=== PATIENT | male | born 1935 | race Caucasian/White ===

== ENCOUNTER 2020-07-22 11:39 | Inpatient (IN) | payer MEDICARE ==
[~2020-07-22] VITALS: Ht 160 cm; Wt 60.3 kg
[2020-07-22 12:23] LABS: ABG BASE EXCESS -1.7 mmol/L (-2.0-3.0); ABG HCO3 21.9 mmol/L (21.0-28.0); ABG OXYGEN SATURATION 94.6 % (95.0-99.0); ABG PCO2 34 mmHg (35-48)
[2020-07-22 12:32] LABS: BASOPHILS % (AUTO) 0.1 % (0.0-5.0); HEMATOCRIT 42.1 % (42-54); LYMPHOCYTES % (AUTO) 2.6 % (21.0-51.0); MEAN CORPUSCULAR HEMOGLOBIN 32.2 pg (27.0-33.0); MEAN CORPUSCULAR HGB CONC 33.7 g/dL (32.0-36.0); MEAN CORPUSCULAR VOLUME 95.5 fL (79-99); MONOCYTES % (AUTO) 4.6 % (3.0-13.0); NEUTROPHILS % (AUTO) 90.5 % (40.0-77.0); PLATELET COUNT (AUTO) 151 K/uL (130-400); RED BLOOD CELL COUNT(AUTO) 4.41 MIL/uL (4.50-6.20); WHITE BLOOD COUNT (AUTO) 13.2 K/uL (4.8-10.8)
[2020-07-22 12:45] LABS: CREATININE 1.2 mg/dL (0.5-1.5); INR 1.05 (0.85-1.15); POTASSIUM 4.1 mmol/L (3.5-5.1); PROTHROMBIN TIME 11.2 SEC (9.6-11.6)
[2020-07-22 12:46] LABS: PARTIAL THROMBOPLASTIN TIME 26.5 SEC (26.3-35.5)
[2020-07-22] MEDS ORDERED: SODIUM CHLORIDE 0.9% 1000ML 2,000 ML IV ONE (12:47)
[2020-07-22 12:49] LABS: ALBUMIN 3.4 g/dL (3.5-5.0); BILIRUBIN,TOTAL 0.8 mg/dL (0.2-1.0); TOTAL PROTEIN, SERUM 6.9 g/dL (6.0-8.3)
[2020-07-22] MEDS ORDERED: ASPIRIN 325 MG TABLET ONE (13:37)
[2020-07-22] MEDS ORDERED: DEXAMETHASONE SOD PHOSPHATE 10MG/ML 1ML VIAL ONE ×2 (13:37→18:57)
[2020-07-22] MEDS ORDERED: AZITHROMYCIN 250 MG TABLET PO ONE (13:38)
[2020-07-22] MEDS ORDERED: CEFTRIAXONE SODIUM 1 GM ONE (13:38)
[2020-07-22 14:21] LABS: CRP QUANTITATIVE 255.2 mg/L (0.00-9.0)
[2020-07-22] MEDS ORDERED: IOHEXOL-350 50ML VIAL IV ONE (14:22)
[2020-07-22] MEDS ORDERED: RENAL DOSE IV SCH (17:30)
[2020-07-22] MEDS ORDERED: ATORVASTATIN CALCIUM 20 MG TABLET ONE (18:57)
[2020-07-22] MEDS ORDERED: DEXAMETHASONE SOD PHOSPHATE 4 MG/ML 1ML VIAL IVP SCH (19:15)
[2020-07-22 20:11] LABS: APPEARANCE,URINE Clear (CLEAR); BILIRUBIN,URINE Negative (NEGATIVE); COLOR,URINE Yellow (YELLOW); GLUCOSE, URINE (UA) Negative (NEGATIVE); KETONES,URINE Trace mg/dL (NEGATIVE); LEUKOCYTE ESTERASE ,URINE Negative (NEGATIVE); NITRATE,URINE Negative (NEGATIVE); OCCULT BLOOD,URINE Trace (NEGATIVE); PROTEIN,URINE Negative (NEGATIVE); UROBILINOGEN,URINE 0.2 mg/dL (0.2-1.0)
[2020-07-22] MEDS ORDERED: LORAZEPAM 2 MG/ML 1 ML VIAL ONE (20:32)
[2020-07-22 20:50] LABS: BACTERIA,URINE None Seen /HPF (None Seen); RBC,URINE None Seen /HPF (0-1); SQUAMOUS EPITHELIAL CELL,UR None Seen /HPF (0-2); WBC,URINE 0-1 /HPF (0-1)
[2020-07-22] MEDS: ENOXAPARIN SODIUM 30 MG/0.3 ML SQ SCH (21:00)
[2020-07-22] MEDS ORDERED: HALOPERIDOL LACTATE 5 MG/ML VIAL ONE (21:40)
[2020-07-22] MEDS ORDERED: SODIUM CHLORIDE 0.9% 250 ML IV ONE (23:25)
[2020-07-23 05:45] LABS: BASOPHILS % (AUTO) 0.1 % (0.0-5.0); HEMATOCRIT 41.6 % (42-54); LYMPHOCYTES % (AUTO) 2.2 % (21.0-51.0); MEAN CORPUSCULAR HEMOGLOBIN 32.5 pg (27.0-33.0); MEAN CORPUSCULAR HGB CONC 33.9 g/dL (32.0-36.0); MEAN CORPUSCULAR VOLUME 95.9 fL (79-99); NEUTROPHILS % (AUTO) 95.3 % (40.0-77.0); PLATELET COUNT (AUTO) 161 K/uL (130-400); RED BLOOD CELL COUNT(AUTO) 4.34 MIL/uL (4.50-6.20); WHITE BLOOD COUNT (AUTO) 13.4 K/uL (4.8-10.8)
[2020-07-23 06:16] LABS: POTASSIUM 4.3 mmol/L (3.5-5.1)
[2020-07-23 06:28] LABS: CRP QUANTITATIVE 280.4 mg/L (0.00-9.0)
[2020-07-23 08:43] VITALS: BP 125/42
--- NOTE | 2020-07-23 08:55 | NUR ---
Pt admission database Pt has advanced Alzheimer's Disease. Pt unable to provide any health data or history. Hospital appointed sitter at bedside. Addendum: 07/23/20 at 0900 by АННА LINTON RN RN Amended: Links added.
[2020-07-23] MEDS ORDERED: ENOXAPARIN SODIUM 40 MG/0.4 ML SYRINGE SQ SCH (09:00)
[2020-07-23] MEDS: ENOXAPARIN SODIUM 30 MG/0.3 ML SQ SCH ×2 (09:00→21:00)
[2020-07-23] MEDS: ATORVASTATIN CALCIUM 20 MG TABLET PO SCH (10:10)
[2020-07-23] MEDS: ASPIRIN 81MG TAB.CHEW PO SCH (10:10)
[2020-07-23] MEDS ORDERED: ENOXAPARIN SODIUM 30 MG/0.3 ML SQ ONE (10:18)
[2020-07-23] MEDS ORDERED: ATORVASTATIN CALCIUM 20 MG TABLET ONE (10:18)
[2020-07-23] MEDS ORDERED: ASPIRIN 81MG TAB.CHEW ONE (10:18)
--- NOTE | 2020-07-23 14:00 | NUR ---
cm note spoke to Dr romero and states wishes for us to work on snf level of care for pt. pt will likely require oxygen at dc. call made to brigido flores, [phone], who states she has spoken to pt's spouse lisa Escudero, and that they agree that pt requires snf level of care. informed of covid facilities available in the area. and she states they wish [facility] as 1st choice. choice letter obtained and referral faxed to [facility]. spoke to obdulia zapata to confirm receipt. will evaluate and let cm know of outcome.
[2020-07-23] MEDS: CEFTRIAXONE SODIUM 1 GM IVP SCH (14:02)
[2020-07-23] MEDS ORDERED: CEFTRIAXONE SODIUM 1 GM ONE (15:37)
--- NOTE | 2020-07-23 17:01 | NUR ---
cm note call made to lornasaida lakeshia flores [phone], and states pt resides at home. is ambulatory, no dme. no home services. spouse drives. and takes to md. as needed. niece and spouse are agreeable to referral to snf level of care. and plan for [facility], is aware that [facility] has evaluated and wishes to re evaluate pt in 2 days. and then determine acceptance. updated dr romero on above, verbalizes understanding. and updated primary nurse lakeshia flores. Addendum: 07/23/20 at 1717 by MAX PHILLIPS CM Amended: Links added.
[2020-07-24] MEDS ORDERED: ASPIRIN 81MG TAB.CHEW ONE (07:44)
[2020-07-24] MEDS ORDERED: ATORVASTATIN CALCIUM 20 MG TABLET ONE (07:44)
[2020-07-24] MEDS ORDERED: ENOXAPARIN SODIUM 30 MG/0.3 ML SQ ONE (07:44)
[2020-07-24] MEDS: ENOXAPARIN SODIUM 30 MG/0.3 ML SQ SCH ×2 (09:00→20:51)
[2020-07-24] MEDS: ASPIRIN 81MG TAB.CHEW PO SCH (10:10)
[2020-07-24] MEDS: ATORVASTATIN CALCIUM 20 MG TABLET PO SCH (10:10)
[2020-07-24 10:41] VITALS: BP 127/78
[2020-07-24 11:00] VITALS: BP 118/43
[2020-07-24] MEDS: CEFTRIAXONE SODIUM 1 GM IVP SCH (14:04)
--- NOTE | 2020-07-24 15:50 | NUR ---
report obtained report from nurse xin...(taking over )...pt stable alert but asleep at this time...introduced myself to patient...patient on 5 liters nasal canula...
[2020-07-24 16:28] VITALS: BP 116/55
--- NOTE | 2020-07-24 17:35 | NUR ---
diet messaged dr. romero to see if he wants to order patient a diet...he has no diet ordered at this time...waiting for call back.
--- NOTE | 2020-07-24 18:31 | NUR ---
dinner patient ate half of his dinner...pt went back to sleep...
[2020-07-25] VITALS: BP 122/56
--- NOTE | 2020-07-25 02:43 | NUR ---
hourly shift nursing note: Neuro: At the start of shift, patient climbing OOB , put back in bed, patient is confuse, Read a letter his wrote for him, unable to oriented, sitter place at the bedside. Cardio: BP stable, HR 90-98, no edema noted, Tmax 98.9 ax Resp: Continues on NC %L, o2 sats 93-95, LS dimished bilat, SOB with activity GI/: Mech soft diet, Abd soft, no BM, incont of urine with diapers. Skin: Intact, bruising on upper arms.
[2020-07-25] MEDS: ASPIRIN 81MG TAB.CHEW PO SCH (10:02)
[2020-07-25] MEDS ORDERED: ERGOCALCIFEROL (VITAMIN D2) 50,000 UNIT CAPSULE PO SCH (10:45)
[2020-07-25 10:51] LABS: BASOPHILS % (AUTO) 0.2 % (0.0-5.0); EOSINOPHILS % (AUTO) 1.9 % (0.0-8.0); HEMATOCRIT 40.3 % (42-54); MEAN CORPUSCULAR HEMOGLOBIN 31.6 pg (27.0-33.0); MEAN CORPUSCULAR VOLUME 95.7 fL (79-99); MONOCYTES % (AUTO) 5.1 % (3.0-13.0); NEUTROPHILS % (AUTO) 89.5 % (40.0-77.0); PLATELET COUNT (AUTO) 165 K/uL (130-400); RED BLOOD CELL COUNT(AUTO) 4.21 MIL/uL (4.50-6.20); RED CELL DISTRIBUTION WIDTH 13.2 % (11.0-15.5); WHITE BLOOD COUNT (AUTO) 6.4 K/uL (4.8-10.8)
[2020-07-25] MEDS: ATORVASTATIN CALCIUM 20 MG TABLET PO SCH (10:56)
[2020-07-25] MEDS: ENOXAPARIN SODIUM 30 MG/0.3 ML SQ SCH ×2 (10:57→21:34)
[2020-07-25] MEDS ORDERED: RENAL DOSE IV SCH (11:00)
[2020-07-25 11:10] LABS: ALBUMIN 2.5 g/dL (3.5-5.0); CREATININE 0.9 mg/dL (0.5-1.5); POTASSIUM 3.1 mmol/L (3.5-5.1)
[2020-07-25 11:15] LABS: CRP QUANTITATIVE 258.6 mg/L (0.00-9.0)
[2020-07-25] MEDS: DEXAMETHASONE SOD PHOSPHATE 4 MG/ML 1ML VIAL IVP SCH (12:14)
--- NOTE | 2020-07-25 12:15 | NUR ---
DYSPHAGIA EVAL COMPLETED. +S/S OF ASPIRATION ACROSS ALL TEXTURES. RECOMMEND NPO, SHORT TERM ALTERNATE MEANS OF NUTRITION/HYDRATION. RENTAL SALES AGENT COORDINATED WITH NURSE BLANK. Addendum: 07/25/20 at 1524 by MELISSA TINAJERO, [facility] Amended: Links added.
[2020-07-25] MEDS: CEFTRIAXONE SODIUM 1 GM IVP SCH (14:28)
[2020-07-25] MEDS: ZOSYN 3.375GM+NS 50ML 50 ML IV SCH ×2 (14:51→21:33)
--- NOTE | 2020-07-25 15:16 | NUR ---
Md FREDDY ordred stat . pt is incontinent , attempted multiple times . UA was send to lab at 1445 Addendum: 07/25/20 at 1520 by YANET ARCE RN RN pt refuesd to be cath, and was combative
[2020-07-25 15:17] LABS: APPEARANCE,URINE Clear (CLEAR); BILIRUBIN,URINE Negative (NEGATIVE); COLOR,URINE Dark Yellow (YELLOW); GLUCOSE, URINE (UA) Negative (NEGATIVE); KETONES,URINE 40 mg/dL (NEGATIVE); LEUKOCYTE ESTERASE ,URINE Negative (NEGATIVE); NITRATE,URINE Negative (NEGATIVE); OCCULT BLOOD,URINE Negative (NEGATIVE); PH,URINE 5.5 (5.0-8.0); PROTEIN,URINE POS 1+ mg/dL (NEGATIVE); UROBILINOGEN,URINE 0.2 mg/dL (0.2-1.0)
[2020-07-25 15:25] LABS: RBC,URINE 0-1 /HPF (0-1); WBC,URINE 0-1 /HPF (0-1)
[2020-07-25 15:26] LABS: BACTERIA,URINE Rare /HPF (None Seen); SQUAMOUS EPITHELIAL CELL,UR Rare /HPF (0-2)
[2020-07-25 16:00] VITALS: BP 111/55
[2020-07-25 16:18] VITALS: BP 111/67
--- NOTE | 2020-07-25 17:39 | NUR ---
MAYUR DECLINED PATIENT AGAIN TODAY- \ STATES TOO EARLY, O2 SATS ONLY 91 ON 5 LNC, NEEDS MORE TIME TO SEE IF GOING TO IMPROVE OR NOT. DR. Etienne ASKED ABOUT KAREL DUENAS, CALL TO [facility] FARRIS FOR K[facility]EL DUENAS, RESONSE WAS THAT UP TO 8 LNC IS OK FOR THEM. OLGA LIDIAR FROM DR. Etienne TO APPROACH FAMILY RE K[facility]EL DUENAS; FAMILY STATES NO, THEY WANT TO GO TO [facility] Addendum: 07/25/20 at 1742 by ARELY PINA RN CM Amended: Links added.
--- NOTE | 2020-07-25 18:05 | NUR ---
FREDDY, SPOKE TO ANA TO Pass message to Dr Carrillo for an order of NG tube or OG tube UPON RECOMMENDATION OF SPEECH PATHOLOGIST
[2020-07-25 20:00] VITALS: BP 131/47
[2020-07-26] VITALS: BP 116/55
[2020-07-26 04:00] VITALS: BP 129/58
[2020-07-26] MEDS: ZOSYN 3.375GM+NS 50ML 50 ML IV SCH ×2 (05:13→22:31)
[2020-07-26] MEDS: ZINC SULFATE 220 CAPSULE PO SCH (09:00)
[2020-07-26] MEDS: ASCORBIC ACID 500 MG TAB PO SCH (09:00)
[2020-07-26] MEDS: ASPIRIN 81MG TAB.CHEW PO SCH (09:00)
[2020-07-26] MEDS: ATORVASTATIN CALCIUM 20 MG TABLET PO SCH (09:00)
[2020-07-26] MEDS: DEXAMETHASONE SOD PHOSPHATE 4 MG/ML 1ML VIAL IVP SCH ×2 (10:13→21:50)
[2020-07-26] MEDS: ENOXAPARIN SODIUM 30 MG/0.3 ML SQ SCH ×2 (10:14→21:51)
[2020-07-26] MEDS ORDERED: POTASSIUM CHLORIDE 20 MEQ ERTAB PO PRN (12:30)
[2020-07-26] MEDS ORDERED: POTASSIUM CHLORIDE 20MEQ/100ML 100 ML IV PRN ×2 (12:30)
[2020-07-26] MEDS ORDERED: [UNRECOGNIZED DRUG - REMARK] MISC SCH (12:30)
--- NOTE | 2020-07-26 14:14 | NUR ---
RD NOTIFICATION - TUBE FEEDING. Pt with S/S aspiration with all textures, per ST. Short term alternate means nutrition recommended. Recommend initiate Vital AF 1.2 @20mls/hr for 24hrs. Goal rate 50mls/hr. Recommend flushes 100mL Q6. Recommendations faxed to [facility], RN notified. GRECIA NOTE: Pt admitted with PNA, Diarrhea, Positive for COVID, AMS. Lovenox, Piperacillin, Lipitor, Aspirin medications in place. Monitored labs: K 3.1, BUN 25, Ca 8.2, CRP 258.60, Alb 2.5. Pt with mild to moderate risk malnutrition related to poor PO x9 days prior to admission per H&P note, S/S mild to moderate fat and muscle loss. RD to continue to monitor. Please notify as additional nutrition concerns arise. Thank you. Addendum: 07/26/20 at [address] Amended: Links added.
[2020-07-26] MEDS ORDERED: PHARMACY COMMUNICATION MISC SCH (14:30)
[2020-07-26 16:00] VITALS: BP 121/64
[2020-07-26] MEDS: CEFTRIAXONE SODIUM 1 GM IVP SCH (18:45)
[2020-07-26 20:00] VITALS: BP 126/50
[2020-07-27] VITALS (19 sets, daily range): BP systolic 105–147; BP diastolic 38–80
[2020-07-27 06:21] LABS: BASOPHILS % (AUTO) 0.3 % (0.0-5.0); EOSINOPHILS % (AUTO) 0.7 % (0.0-8.0); HEMATOCRIT 42.9 % (42-54); MEAN CORPUSCULAR HEMOGLOBIN 31.3 pg (27.0-33.0); MEAN CORPUSCULAR HGB CONC 32.6 g/dL (32.0-36.0); MONOCYTES % (AUTO) 7.5 % (3.0-13.0); PLATELET COUNT (AUTO) 249 K/uL (130-400); RED BLOOD CELL COUNT(AUTO) 4.47 MIL/uL (4.50-6.20); RED CELL DISTRIBUTION WIDTH 12.9 % (11.0-15.5); WHITE BLOOD COUNT (AUTO) 7.2 K/uL (4.8-10.8)
[2020-07-27] MEDS: ZOSYN 3.375GM+NS 50ML 50 ML IV SCH ×3 (06:30→22:48)
[2020-07-27 06:45] LABS: ALBUMIN 2.9 g/dL (3.5-5.0); BILIRUBIN,TOTAL 0.8 mg/dL (0.2-1.0); CREATININE 1.1 mg/dL (0.5-1.5); CRP QUANTITATIVE 95.5 mg/L (0.00-9.0); POTASSIUM 3.4 mmol/L (3.5-5.1)
[2020-07-27] MEDS ORDERED: DEXMEDETOMIDINE HCL 400 MCG in SODIUM CHLORIDE 0.9% 100 ML IV SCH ×2 (08:45→19:00)
[2020-07-27] MEDS ORDERED: DEXMEDETOMIDINE HCL 200 MCG in SODIUM CHLORIDE 0.9% 50 ML IV SCH (08:45)
[2020-07-27] MEDS ORDERED: COMPOUND IV REFRIGERATED 1 EACH IVSOLN MISC PRN (09:00)
[2020-07-27] MEDS ORDERED: REMDESIVIR (EUA) 520 200 MG in SODIUM CHLORIDE 0.9% 250 ML IV ONE (09:00)
[2020-07-27] MEDS ORDERED: FAMOTIDINE/PF 20 MG/2 ML VIAL IV SCH (09:00)
[2020-07-27] MEDS ORDERED: RISPERIDONE 1 MG TABLET PO SCH (09:00)
[2020-07-27] MEDS: ZINC SULFATE 220 CAPSULE PO SCH (09:00)
[2020-07-27] MEDS: ATORVASTATIN CALCIUM 20 MG TABLET PO SCH (09:00)
[2020-07-27] MEDS: ASPIRIN 81MG TAB.CHEW PO SCH (09:00)
[2020-07-27] MEDS: ASCORBIC ACID 500 MG TAB PO SCH (09:00)
--- NOTE | 2020-07-27 09:00 | NUR ---
restraint pt. continues in moshe. mitt restraints due to pulling at oxygen and causing o2 to desat. removed q2h to check skin integrity. pt. restless and unable to comprehend direction to not remove NC. will continue to monitor for any changes.
[2020-07-27] MEDS: DEXAMETHASONE SOD PHOSPHATE 4 MG/ML 1ML VIAL IVP SCH (10:25)
[2020-07-27] MEDS: ENOXAPARIN SODIUM 30 MG/0.3 ML SQ SCH (10:28)
[2020-07-27] MEDS: DEXTROSE 5%-WATER 500 ML IV SCH ×3 (11:00→23:27)
--- NOTE | 2020-07-27 11:30 | NUR ---
MEDICATION PRECEDEX DRIPPED STOPPED DUE TO DECREASED HR-47
--- NOTE | 2020-07-27 12:00 | NUR ---
INTERVENTIONAL RADIOLOGY SPOKE WITH INTERVENTIONAL RADIOLOGY DEPARTMENT; STATED THAT THEY DO NOT DO PLACEMENT OF DOBHOFF TUBES. STATED WILL DELIVER A TUBE TO NURSING STAFF TO PLACE
[2020-07-27] MEDS: POTASSIUM CHLORIDE 10MEQ/100ML 10 MEQ/100 ML ML IV SCH ×2 (12:06→14:39)
--- NOTE | 2020-07-27 12:44 | NUR ---
CARDIOLOGY PT. NOTEDWITH DECREASED HEART RATE OF 44-47 WITH CHANGE IN EKG EHYTHYM - PEAKED P-WAVE. ORDER ENTERED PER PROTOCOL TO OBTAIN 12 LEAD EKG- SINUS BRADYCARDIA( SEE PAPER CHART). PT. VITAL SIGNS STABLE OTHER THAN DECREASED HR. PT. HARD TO AROUSE BUT WILL OPEN EYES TO PHYSICAL TOUCH. NO S/S OF PAIN. CONT. WITH 02 SATS IN 90'S ON 02 AT 10 LPM. CHARGE NURSE MADE AWARE OF PT. CHANGE IN CONDITION.
--- NOTE | 2020-07-27 12:53 | NUR ---
SPOKE TO NIECE ON PHONE RE CURRENT VS. SHE STATED THAT PATIENTS FAMILY WAS THINKING ABOUT STATUS, DOES NOT WANT HIM INTUBATED,CONTACTED SOPHY REED ORDER TO DISCUSS CODE STATUS WITH FAMILY AND PLACE DNR ORDER IF THEY AGREE. CALL TO SPOUSE ROSINA, WITH NURSE JEFF WITNESS. DISCUSSED PATIENTS WISHES, CM EMPHASIZED STILL TREATING PATIENT BUT WE WANT TO BE SURE END OF LIFE WISHES ARE RESPECTED, SPOUSE DECLARED NO CPR, NO INTUBATION, BUT ALL OTHER TREATMENT DEEMED NECESSARY BY MD. KRISTIAN AGUILAR WILL UPDATE SPOUSE WITH ANY CHANGES IN CONDITION ORDER ENTERED/ PAPER COMPLETED AND IN CHART
--- NOTE | 2020-07-27 14:41 | NUR ---
MED 2ND BAG OF POTASSIUM ADMINISTERED 10 MEQ VIA IV PER ORDER
--- NOTE | 2020-07-27 14:49 | NUR ---
RD UPDATE Notification for tube feeding recommendations. Recommendations re-faxed to 2B. Discussed with RN. Pending Tube placement. RD to continue to monitor. Please notify as additional nutrition concerns arise. Thank you.
--- NOTE | 2020-07-27 15:15 | NUR ---
DOBHOFF TUBE SPOKE WITH INTERVENTIONAL RADIOLOGY DEPT. STATED THAT THEY DO NOT INSERT DOBHOFF TUBES AND THAT THEY WILL ONLY VERIFY PLACEMENT OF TUBE. NOTIFIED SAUNDRA RANGEL, [employer] PROFESSOR NURSE. 1520: WITH DR MONSE Crockett PRESENT, THIS NURSE MADE [address] DUBHOFF TUBE AND WAS UNSUCCESSFUL. PATIENT COMBATIVE AND DOES NOT FOLLOW COMMANDS DESPITE ADMINISTRATION OF LORAZEPAM. PER MD, [facility] RADIOLOG[facility] MUST DO THE PROCEDURE. NOTIFIED TIFFANY AT [facility] RADIOLOG[facility] DEPARTMENT
--- NOTE | 2020-07-27 15:30 | NUR ---
DR SHEA PRESENT DR SHEA PRESENT AT BEDSIDE TO ATTEMPT CATHETER INSERTION. UNABLE TO INSERT INDWELLING CATHETER DUE TO RESISTANCE MET. ORDERED LORAZEPAM IV PUSH TO BE ADMINISTERED PATIENT IS CURRENTLY COMBATIVE.
[2020-07-27] MEDS ORDERED: LORAZEPAM 2 MG/ML 1 ML VIAL ONE (16:19)
--- NOTE | 2020-07-27 16:45 | NUR ---
IR NOTIFICATION SPOKE WITH TIFFANY AT [facility] RADI[facility]. NOTIFIED THAT NURSES UNABLE TO INSERT DOBHOFF TUBE. STATES WILL NOTIFY RADIOLOGIST AND PLACE PATIENT ON SCHEDULE FOR TOMORROW.
--- NOTE | 2020-07-27 17:00 | NUR ---
DE GUZMAN CATHETER PLACEMENT LORI TRONCOSO ELECTRICIAN STATION ASSISTANT PRESENT AT BEDSIDE. PLACED 12 JORDANIAN DE GUZMAN CATHETER AND DRAINED CLEAR YELLOW URINE.
[2020-07-27] MEDS ORDERED: LORAZEPAM 2 MG/ML 1 ML VIAL IVP ONE (17:33)
[2020-07-28] VITALS: BP 153/66
[2020-07-28] MEDS: DEXTROSE 5%-WATER 500 ML IV SCH
[2020-07-28 05:59] LABS: BASOPHILS % (AUTO) 0.2 % (0.0-5.0); EOSINOPHILS % (AUTO) 0.3 % (0.0-8.0); HEMATOCRIT 39.6 % (42-54); LYMPHOCYTES % (AUTO) 3.6 % (21.0-51.0); MEAN CORPUSCULAR HEMOGLOBIN 31.6 pg (27.0-33.0); MEAN CORPUSCULAR HGB CONC 33.1 g/dL (32.0-36.0); MEAN CORPUSCULAR VOLUME 95.7 fL (79-99); MONOCYTES % (AUTO) 7.4 % (3.0-13.0); NEUTROPHILS % (AUTO) 86.2 % (40.0-77.0); PLATELET COUNT (AUTO) 251 K/uL (130-400); RED BLOOD CELL COUNT(AUTO) 4.14 MIL/uL (4.50-6.20); RED CELL DISTRIBUTION WIDTH 12.5 % (11.0-15.5); WHITE BLOOD COUNT (AUTO) 10.5 K/uL (4.8-10.8)
[2020-07-28] MEDS: PHARMACY COMMUNICATION MISC SCH (06:00)
[2020-07-28 06:28] LABS: ALBUMIN 2.7 g/dL (3.5-5.0); BILIRUBIN,TOTAL 0.8 mg/dL (0.2-1.0); CRP QUANTITATIVE 50.5 mg/L (0.00-9.0); MAGNESIUM 2.5 mg/dL (1.80-2.40); PHOSPHORUS 2.8 mg/dL (2.5-4.9); POTASSIUM 3.6 mmol/L (3.5-5.1); THYROID STIMULATING HORMONE 0.34 uIU/mL (0.36-3.74); TOTAL PROTEIN, SERUM 6.2 g/dL (6.0-8.3)
[2020-07-28] MEDS: ZOSYN 3.375GM+NS 50ML 50 ML IV SCH ×3 (07:38→22:00)
[2020-07-28] MEDS ORDERED: DEXAMETHASONE SOD PHOSPHATE 4 MG/ML 1ML VIAL IVP SCH (09:00)
[2020-07-28] MEDS: ASPIRIN 81MG TAB.CHEW PO SCH (09:00)
[2020-07-28] MEDS: ZINC SULFATE 220 CAPSULE PO SCH (09:00)
[2020-07-28] MEDS: ASCORBIC ACID 500 MG TAB PO SCH (09:00)
[2020-07-28] MEDS ORDERED: PANTOPRAZOLE 40 MG/VIAL IVP SCH (09:00)
[2020-07-28] MEDS ORDERED: ENOXAPARIN SODIUM 40 MG/0.4 ML SYRINGE SQ SCH (09:00)
[2020-07-28] MEDS: ATORVASTATIN CALCIUM 20 MG TABLET PO SCH (09:00)
[2020-07-28] MEDS: HALOPERIDOL LACTATE 5 MG/ML VIAL IV SCH ×3 (09:19→21:56)
[2020-07-28 11:00] VITALS: BP 133/49
[2020-07-28] MEDS: DEXTROSE 5%-WATER 1,000 ML IV SCH ×2 (11:24→21:15)
[2020-07-28 12:00] VITALS: BP 121/66
[2020-07-28 13:09] VITALS: BP 143/64
--- NOTE | 2020-07-28 13:14 | NUR ---
med routine protonix for a.m. unavailable in [facility]. pharmacy made aware .
[2020-07-28] MEDS ORDERED: LIDOCAINE HCL 2% VISCOUS 15 ML UDCUP ONE (13:19)
--- NOTE | 2020-07-28 13:42 | NUR ---
status update pt. continues on d5w at 100 ml/hr via IV. no s/s of pain. scattered purple/green remains to moshe upper extremities. skin otherwise intact. continues on 02 via NC at 6 lpm via NC with 02 sats remaining in low to mid 90's. f/c patent and draining maciej colored urine. no s/s of respiratory distress. VSS. IR here at this time to place dobhoff. potassium replaced per protocol- repeat potassium to be drawn at 1730.
[2020-07-28] MEDS ORDERED: REMDESIVIR (EUA) 520 100 MG in SODIUM CHLORIDE 0.9% 250 ML IV SCH (14:00)
[2020-07-28] MEDS ORDERED: DIATR MEGLU/DIATRIZOATE SODIUM 30 ML BOTTLE ONE (14:34)
--- NOTE | 2020-07-28 15:09 | NUR ---
DOP LINDSEY TUBE PLACEMENT PATIENT ASSESSED AT BEDSIDE AND DOP LINDSEY FEEDING TUBE PLACED TO [facility]. UNABLE TO AUSCULTATE PLACEMENT IN STOMACH. PATENT TRANSPORTED TO RADIOLOGY FOR VERIFICATION. DOP LINDSEY GUIDED IN PLACE UNDER FLUORO WITH WIRE GUIDANCE. DOP LINDSEY FEEDING TUBE IN PLACE IN C LOOP OF THE SMALL BOWEL. DOP LINDSEY SECURED WITH BUTTERFLY WING TAPE. PATIENT TRANSPORTED TO [facility] VIA BED AND BEDSIDE REPORT GIVEN TO KRISTIAN JERNIGAN
[2020-07-28 15:17] VITALS: BP 133/66
--- NOTE | 2020-07-28 15:18 | NUR ---
STATUS PT. RETURNED FROM IR WITH DOBHOFF PLACED. PER TIFFANY IN IR OK TO USE- PLACEMENT VERIFIED IN IR. AWAITING OFFICIAL RESULTS TO UPLOAD BEFORE USE OF DOBHOFF FOR TUBE FEEDINGS. PT. VSS. LYING IN BED WITH EYES CLOSED.
[2020-07-28] MEDS: LORAZEPAM 2 MG/ML 1 ML VIAL IVP PRN (19:14)
--- NOTE | 2020-07-28 19:18 | NUR ---
STATUS UPDATE ORDER PLACED PER PROTOCOL TO REPEAT POTASSIUM LEVEL DUE TO QUESTIONABLE DECREASED POTASSIUM LEVEL AFTER POTASSIUM REPLACEMENT OF 20 MEQ. POTASSIUM THIS A.M. 3.6 AFTER REPLACEMENT 3.4. PRN ATIVAN ADMINISTERED DUE TO INCREASED ANXIETY CAUSING ELEVATED B/P AND DECREASED 02 SAT. Addendum: 07/28/20 at 1920 by SUNDAY FARFAN RN RN TUBE FEED STARTED PER ORDER VITAL AF 1.2 AT 20 ML/HR.
[2020-07-28 20:00] VITALS: BP 147/57
[2020-07-28] MEDS: POTASSIUM CHLORIDE 10% ELIXIR 20 MEQ/15 ML UDCUP PO PRN (23:01)
[2020-07-29] VITALS: BP 130/56
[2020-07-29] MEDS: POTASSIUM CHLORIDE 10% ELIXIR 20 MEQ/15 ML UDCUP PO PRN ×2 (00:47→02:26)
--- NOTE | 2020-07-29 02:57 | NUR ---
Admission note ICU; Patient arrived to ICU approx 2345 from ED. Neuro: Patient is alert/orient x3, able to standing,and walk to the bed. Cardio: HR SB 50-59, SBP 119-150, mPS > 65, generalized edema lower extremities, pt denies any pain Resp: arrived on Bipap 05/11 Fi02 100%, LS coarse diminished both bases, RR 20-29, SOB on excertion noted. GI/: Clear liquid diet, BM per report 07/28 while in the ED, voiding via urinal dark maciej urine, receiving insulin per sliding scale, and Lantus as ordered. ID/Skin: Tmax 97.1, skin intact, received 3 doses of Remdesivir per ED nurse Deirdre. See emar for medication list. Access: PIV 20 g x 2 right hand and rfa,
[2020-07-29] MEDS: HALOPERIDOL LACTATE 5 MG/ML VIAL IV SCH ×2 (03:22→10:55)
[2020-07-29 04:00] VITALS: BP 140/56
[2020-07-29 04:12] LABS: BASOPHILS % (AUTO) 0.4 % (0.0-5.0); HEMATOCRIT 40.4 % (42-54); LYMPHOCYTES % (AUTO) 3.8 % (21.0-51.0); MEAN CORPUSCULAR HEMOGLOBIN 31.5 pg (27.0-33.0); MEAN CORPUSCULAR HGB CONC 33.4 g/dL (32.0-36.0); MEAN CORPUSCULAR VOLUME 94.4 fL (79-99); MONOCYTES % (AUTO) 5.5 % (3.0-13.0); NEUTROPHILS % (AUTO) 85.7 % (40.0-77.0); PLATELET COUNT (AUTO) 271 K/uL (130-400); RED BLOOD CELL COUNT(AUTO) 4.28 MIL/uL (4.50-6.20); RED CELL DISTRIBUTION WIDTH 12.6 % (11.0-15.5); WHITE BLOOD COUNT (AUTO) 11.4 K/uL (4.8-10.8)
[2020-07-29 04:37] LABS: ALBUMIN 2.7 g/dL (3.5-5.0); BILIRUBIN,TOTAL 1.1 mg/dL (0.2-1.0); CREATININE 0.9 mg/dL (0.5-1.5); CRP QUANTITATIVE 42.8 mg/L (0.00-9.0); MAGNESIUM 1.9 mg/dL (1.80-2.40); POTASSIUM 4.2 mmol/L (3.5-5.1); TOTAL PROTEIN, SERUM 6.1 g/dL (6.0-8.3)
[2020-07-29] MEDS: LORAZEPAM 2 MG/ML 1 ML VIAL IVP PRN (05:44)
[2020-07-29] MEDS: PHARMACY COMMUNICATION MISC SCH (06:00)
[2020-07-29] MEDS: ZOSYN 3.375GM+NS 50ML 50 ML IV SCH (06:01)
[2020-07-29] MEDS: DEXTROSE 5%-WATER 1,000 ML IV SCH (06:01)
[2020-07-29 08:00] VITALS: BP 108/57
[2020-07-29] MEDS ORDERED: MORPHINE SULFATE 2 MG/ML 1ML SYG IVP SCH (08:33)
[2020-07-29] MEDS ORDERED: ACETAMINOPHEN 325 MG TAB PO PRN (09:15)
[2020-07-29] MEDS ORDERED: MORPHINE SULFATE 20MG/ML ORAL 0.25 ML PO PRN ×3 (09:15)
[2020-07-29] MEDS ORDERED: ARTIFICAL TEARS SOL 15 ML OU PRN (09:15)
[2020-07-29] MEDS ORDERED: ACETAMINOPHEN 650 MG SUPPOSITORY RC PRN (09:15)
[2020-07-29] MEDS: MORPHINE SULFATE 5 MG/ML VIAL IV PRN ×2 (10:13→12:21)
[2020-07-29] MEDS ORDERED: LORAZEPAM 2 MG/ML 1 ML VIAL IM PRN (10:30)
--- NOTE | 2020-07-29 11:10 | NUR ---
STATUS UPDATE PT. LYING IN BED. NO S/S OF DISCOMFORT NOTED AT PRESENT. CONTINUES WITH SLOW SHALLOW BREATHING. WAS APPEARING IN PAIN PRIOR TO MORPHINE AND HALDOL ADMINISTRATION. SEE MAR FOR DOSAGES AND TIMES GIVEN. NG TUBE AND F/C REMOVED PER ORDER. MOUTH CARE COMPLETED. CONTINUES ON 02 VIA NON REBREATHER, ATTEMPTED TO PLACE NC FOR COMFORT BUT PT. 02 SATS WOULD DROP TO 70%. TELE MONITOR TURNED OFF PER ORDER.
[2020-07-29] MEDS ORDERED: ONDANSETRON HCL 4 MG/2 ML VIAL IVP SCH (12:00)
[2020-07-29] MEDS ORDERED: GLYCOPYRROLATE 1 MG/5 ML SYRINGE IV PRN (13:00)
--- NOTE | 2020-07-29 14:30 | NUR ---
REC'ED CALL FROM SON NILE, WANTED TO SPEAK TO PATIENT, CM PHONE TO PATIENT'S EAR, ON SPEAKER, PT APPEARED TO BE VERY CLOSE TO AT POINT OF CALL. SON ABLE TO STAY ON PHONE TO PATIENT AT TIME OF LAST FEW BREATHS UNTIL RHYTHM CEASED. PRIMARY NURSE AT BEDSIDE, DEFERRING ALL FURTHER FAMILY NOTIFICATIONS TO HER.
--- NOTE | 2020-07-29 16:14 | NUR ---
STATUS PT. TIME OF PRONONUNCED BY PANEL INSTRUMENT REPAIRER. AT 1438. FAMILY MADE AWARE. POST MORTEM CARE PERFORMED. SECURITY NOTIFIED TO COME TRANSPORT BODY. PT. BELONGINGS BAG SENT WITH PT. TO MANAN.
== END 2020-07-29 14:38 | disposition expired | DRG 177 ==
LOC: EDH 11:39 → EDHIP 13:22 → 2CV 07-24 10:00
PROVIDERS: ADMIT Internal Medicine; ATTEND Internal Medicine
PROC: 0D9670Z Drainage of Stomach with Drainage Device, Via Natural or Artificial Opening (ICD-10-PCS; principal; 2020-07-22)
PROC: XW13325 Transfusion of Convalescent Plasma (Nonautologous) into Peripheral Vein, Percutaneous Approach, New Technology Group 5 (ICD-10-PCS; 2020-07-22)
PROC: XW033E5 Introduction of Remdesivir Anti-infective into Peripheral Vein, Percutaneous Approach, New Technology Group 5 (ICD-10-PCS; 2020-07-22)
DX: U07.1 COVID-19 (principal); J12.89 Other viral pneumonia; J80 Acute respiratory distress syndrome; E43 Unspecified severe protein-calorie malnutrition; G93.41 Metabolic encephalopathy; E87.1 Hypo-osmolality and hyponatremia; I42.8 Other cardiomyopathies; M62.82 Rhabdomyolysis; N35.919 Unspecified urethral stricture, male, unspecified site; Z66 Do not resuscitate; R00.1 Bradycardia, unspecified; F02.80 Dementia in other diseases classified elsewhere, unspecified severity, without behavioral disturbance, psychotic disturbance, mood disturbance, and anxiety; R77.8 Other specified abnormalities of plasma proteins; E86.1 Hypovolemia; G20 Parkinson's disease; N18.2 Chronic kidney disease, stage 2 (mild); G30.9 Alzheimer's disease, unspecified; Z96.653 Presence of artificial knee joint, bilateral; Z91.19 Patient's noncompliance with other medical treatment and regimen; Z68.23 Body mass index [BMI] 23.0-23.9, adult; Z82.0 Family history of epilepsy and other diseases of the nervous system
CPT/HCPCS: 36415; 36600; 43752; 70450; 71045; 74018; 80048; 80053; 81001; 82040; 82140; 82550; 82728; 82803; 83615; 83690; 83735; 84100; 84132; 84145; 84439; 84443; 84484; 85025; 85378; 85610; 85730; 86140; 86900; 86901; 86927; 87040; 87088; 87426; 87804; 92610; 93005; 94760; 97039; G0378; J0696; J1100; J1630; J1650; J2060; J2270; J2405; J2543; J3480; J3490; J7030; J7050; J7060; J7070; Q9963; Q9967; U0003